=== PATIENT | male | born 1940 | race Caucasian/White ===

== ENCOUNTER 2016-07-16 08:20 | Emergency (ER) | payer MEDICARE ==
[~2016-07-16] VITALS: Ht 175.3 cm; Wt 103.2 kg
[~2016-07-16 08:20] MED LIST: ASP81CT PO; CHOL100061 PO; DXZS2T PO; OMG1KC PO
--- OUTSIDE RECORDS SUMMARY | 2016-07-16 08:25 | XMS REPORT | Continuity of Care Document ---
Author Author [facility] Address Unknown Phone Unavailable Allergies Active Description Code Type Severity Reaction Onset Reported/Identified Relationship to Patient Clinical Status Yes No Known Drug Allergies [id number] Drug Allergy Unknown N/ A 09/09/2012 Medications Problems Date Dx Coded Attending Type Code Diagnosis Diagnosed By 09/09/2012 Ot 372.30 09/09/2012 Ot 379.91 09/09/2012 Ot 473.9 09/21/2014 Ot 719.41 09/21/2014 Ot E888.9 09/21/2014 Ot 244.9 09/21/2014 Ot 250.00 09/21/2014 Ot 272.0 09/21/2014 Ot 285.9 09/21/2014 Ot 401.9 09/21/2014 Ot 599.0 09/21/2014 Ot 733.90 09/21/2014 Ot 790.99 09/21/2014 Ot V76.44 09/21/2014 SUZETTE DUENAS, CHRIS Fisher Ot 733.00 09/21/2014 SUZETTE DUENAS, CHRIS Fisher Ot 427.9 09/21/2014 SUZETTE DUENAS, CHRIS Fisher Ot 786.2 09/21/2014 Ot 719.41 09/21/2014 Ot E888.9 09/21/2014 Ot 244.9 09/21/2014 Ot 250.00 09/21/2014 Ot 272.0 09/21/2014 Ot 285.9 09/21/2014 Ot 401.9 09/21/2014 Ot 599.0 09/21/2014 Ot 733.90 09/21/2014 Ot 790.99 09/21/2014 Ot V76.44 09/21/2014 SUZETTE DUENAS, CHRIS Fisher Ot 733.00 09/21/2014 SUZETTE DUENAS, CHRIS Fishre Ot 427.9 09/21/2014 SUZETTE DUENAS, CHRIS Fisher Ot 786.2 10/18/2014 SUZETTE DUENAS, CHRIS Fisher Ot 244.9 10/18/2014 SUZETTE DUENAS, CHRIS R Ot 250.00 10/18/2014 SUZETTE DUENAS, CHRIS R Ot 272.0 10/18/2014 SUZETTE DUENAS, CHRIS R Ot 285.9 10/18/2014 SUZETTE DUENAS, CHRIS R Ot 401.9 10/18/2014 SUZETTE DUENAS, CHRIS R Ot 599.0 10/18/2014 SUZETTE DUENAS, CHRSI R Ot 733.00 10/18/2014 SUZETTE DUENAS, CHRIS R Ot 786.2 10/18/2014 SUZETTE DUENAS, CHRIS R Ot 790.6 10/18/2014 SUZETTE DUENAS, CHRIS R Ot V76.44 10/21/2014 SUZETTE DUENAS, CHRIS R Ot 244.9 10/21/2014 SUZETTE DUENAS, CHRIS R Ot 250.00 10/21/2014 SUZETTE DUENAS, CHRIS R Ot 272.0 10/21/2014 SUZETTE DUENAS, CHRIS R Ot 285.9 10/21/2014 SUZETTE DUENAS, CHRIS R Ot 401.9 10/21/2014 SUZETTE DUENAS, CHRIS R Ot 599.0 10/21/2014 SUZETTE DUENAS, CHRIS R Ot 733.00 10/21/2014 SUZETTE DUENAS, CHRIS Fisher Ot 786.2 10/21/2014 SUZETTE DUENAS, CHRIS Fisher Ot 790.6 10/21/2014 SUZETTE DUENAS, CHRIS Fisher Ot V76.44 09/16/2015 CHRIS BRADFORD MD Ot E13.65 OTHER SPECIFIED DIABETES MELLITUS WITH H 09/16/2015 CHRIS BRADFORD MD Ot N50.8 OTHER SPECIFIED DISORDERS OF MALE GENITA 09/16/2015 CHRIS BRADFORD MD Ot E13.65 OTHER SPECIFIED DIABETES MELLITUS WITH H 09/16/2015 CHRIS BRADFORD MD Ot N50.8 OTHER SPECIFIED DISORDERS OF MALE GENITA 09/16/2015 CHRIS BRADFORD MD Ot E13.65 OTHER SPECIFIED DIABETES MELLITUS WITH H 09/16/2015 CHRIS BRADFORD MD Ot N50.8 OTHER SPECIFIED DISORDERS OF MALE GENITA 09/20/2015 CHRIS BRADFORD MD Ot D50.8 OTHER IRON DEFICIENCY ANEMIAS 09/20/2015 CHRIS BRADFORD MD Ot E03.4 ATROPHY OF THYROID (ACQUIRED) 09/20/2015 CHRIS BRADFORD MD Ot E13.65 OTHER SPECIFIED DIABETES MELLITUS WITH H 09/20/2015 CHRIS BRADFORD MD Ot E78.0 PURE HYPERCHOLESTEROLEMIA 09/20/2015 CHRIS BRADFORD MD Ot I49.8 OTHER SPECIFIED CARDIAC ARRHYTHMIAS 09/20/2015 CHRIS BRADFORD MD Ot M81.0 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 09/20/2015 CHRIS BRADFORD MD, Ot N39.0 URINARY TRACT INFECTION, SITE NOT SPECIF 09/20/2015 CHRIS BRADFORD MD Ot R06.00 DYSPNEA, UNSPECIFIED 09/20/2015 CHRIS BRADFORD MD Ot R79.89 OTHER SPECIFIED ABNORMAL FINDINGS OF BLO 10/06/2015 CHRIS BRADFORD MD Ot D50.8 OTHER IRON DEFICIENCY ANEMIAS 10/06/2015 CHRIS BRADFORD MD Ot E03.4 ATROPHY OF THYROID (ACQUIRED) 10/06/2015 CHRIS BRADFORD MD Ot E13.65 OTHER SPECIFIED DIABETES MELLITUS WITH H 10/06/2015 CHRIS BRADFORD MD Ot E78.0 PURE HYPERCHOLESTEROLEMIA 10/06/2015 CHRIS BRADFORD MD Ot I49.8 OTHER SPECIFIED CARDIAC ARRHYTHMIAS 10/06/2015 CHRIS BRADFORD MD, Ot M81.0 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 10/06/2015 CHRIS BRADFORD MD Ot N39.0 URINARY TRACT INFECTION, SITE NOT SPECIF 10/06/2015 CHRIS BRADFORD MD Ot R06.00 DYSPNEA, UNSPECIFIED 10/06/2015 CHRIS BRADFROD MD Ot R79.89 OTHER SPECIFIED ABNORMAL FINDINGS OF BLO 10/06/2015 CHRIS BRADFORD MD Ot D50.8 OTHER IRON DEFICIENCY ANEMIAS 10/06/2015 CHRIS BRADFORD MD Ot E03.4 ATROPHY OF THYROID (ACQUIRED) 10/06/2015 CHRIS BRADFORD MD Ot E13.65 OTHER SPECIFIED DIABETES MELLITUS WITH H 10/06/2015 CHRIS BRADFORD MD Ot E78.0 PURE HYPERCHOLESTEROLEMIA 10/06/2015 CHRIS BRADFORD MD Ot I49.8 OTHER SPECIFIED CARDIAC ARRHYTHMIAS 10/06/2015 CHRIS BRADFORD MD, Ot M81.0 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 10/06/2015 CHRIS BRADFORD MD, Ot N39.0 URINARY TRACT INFECTION, SITE NOT SPECIF 10/06/2015 CHRIS BRADFORD MD, Ot R06.00 DYSPNEA, UNSPECIFIED 10/06/2015 CHRIS BRADFORD MD, Ot R79.89 OTHER SPECIFIED ABNORMAL FINDINGS OF BLO 10/12/2015 CHRIS BRADFORD MD Ot D50.8 OTHER IRON DEFICIENCY ANEMIAS 10/12/2015 CHRIS BRADFORD MD Ot E03.4 ATROPHY OF THYROID (ACQUIRED) 10/12/2015 CHRIS BRADFORD MD Ot E13.65 OTHER SPECIFIED DIABETES MELLITUS WITH H 10/12/2015 CHRIS BRADFORD MD, Ot E78.0 PURE HYPERCHOLESTEROLEMIA 10/12/2015 CHRIS BRADFORD MD, Ot I49.8 OTHER SPECIFIED CARDIAC ARRHYTHMIAS 10/12/2015 CHRIS BRADFORD MD, Ot M81.0 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 10/12/2015 CHRIS BRADFORD MD, Ot N39.0 URINARY TRACT INFECTION, SITE NOT SPECIF 10/12/2015 CHRIS BRADFORD MD, Ot R06.00 DYSPNEA, UNSPECIFIED 10/12/2015 CHRIS BRADFORD MD, Ot R79.89 OTHER SPECIFIED ABNORMAL FINDINGS OF BLO Procedures Results Encounters ACCT No. Visit Date/Time Discharge Status Pt. Type Provider Facility Loc./Unit Complaint [id number] 09/21/2014 07:08:00 2014 23:59:59 CLS Outpatient SUZETTE DUENAS, [facility] RAD [id number] 09/16/2013 07:25:00 2013 23:59:59 CLS Outpatient SUZETTE DUENAS, [facility] LAB [id number] 02/04/2013 10:28:00 2012 23:59:59 CLS Outpatient SUZETTE DUENAS [facility] LAB [id number] 09/16/2015 07:45:00 ACT Outpatient SUZETTE DUENAS [facility] LAB [id number] 09/09/2012 20:27:00 Document Registration [id number] 07/29/2012 07:31:00 Document Registration [id number] 02/20/2012 10:22:00 Document Registration
--- OUTSIDE RECORDS SUMMARY | 2016-07-16 08:27 | XMS REPORT | Continuity of Care Document ---
Author Author [facility] Address Unknown Phone Unavailable Allergies Active Description Code Type Severity Reaction Onset Reported/Identified Relationship to Patient Clinical Status Yes No Known Drug Allergies [id number] Drug Allergy Unknown N/ A 09/09/2012 Medications [...] CHRIS R Ot 599.0 10/18/2014 SUZETTE DUENAS, CHRIS R Ot 733.00 10/18/2014 SUZETTE DUENAS, CHRIS [...] MD Ot R06.00 DYSPNEA, UNSPECIFIED 10/06/2015 CHRIS BRADFORD MD Ot R79.89 OTHER SPECIFIED [...] Status Pt. Type Provider Facility Loc./Unit Complaint [id number] 09/21/2014 07:08:00 2014 23:59:59 CLS Outpatient SUZETTE DUENAS, [facility] RAD [id number] 09/16/2013 07:25:00 2013 23:59:59 CLS Outpatient SUZETTE DUENAS, [facility] LAB [id number] 02/04/2013 10:28:00 2012 23:59:59 CLS Outpatient SUZETTE DUENAS [facility] LAB [id number] 09/16/2015 07:45:00 ACT Outpatient SUZETTE DUENAS [facility] LAB [id number] 09/09/2012 20:27:00 Document Registration [id number] 07/29/2012 07:31:00 Document Registration [id number] 02/20/2012 10:22:00 Document Registration
[2016-07-16] MEDS ORDERED: HYDROcodone/APAP 5 MG/325 MG (NORCO) TAB PO ONE (08:35)
[2016-07-16] MEDS ORDERED: CARV25TA30 PO (08:40)
[2016-07-16] MEDS ORDERED: HYDR-3702 PO (09:12)
--- NOTE | 2016-07-16 09:13 | Diagnostic Imaging Report ---
EXAMINATION: Left shoulder, 2 views. COMPARISON: February 20, 2012. HISTORY: 75-year-old male, left shoulder pain after fall. FINDINGS: There is a comminuted displaced fracture of the left proximal humerus which includes involvement of the humeral neck and tuberosities. There is offset of the tuberosity fracture fragments measured on the lateral projection by up to at least 6 mm. There are limitations for assessment of humeral head alignment relative to the glenoid relating to the views able to be obtained. There is no obvious dislocation of the humeral head relative to the glenoid. The acromioclavicular joint is normally aligned. There are mild acromioclavicular degenerative changes without large undersurface osteophyte. No additional acute fracture is identified. IMPRESSION: 1. Comminuted displaced fracture of the left proximal humerus involving the humeral neck and tuberosities with displacement of the tuberosity fracture fragments by up to at least 6 mm. Dictated by: Dictated on workstation # [id number]
[2016-07-16 10:27] VITALS: BP 192/64
== END 2016-07-16 09:20 | disposition home or self-care (01) ==
LOC: ED 08:22
DX: S42.252A Displaced fracture of greater tuberosity of left humerus, initial encounter for closed fracture (principal); W01.10XA Fall on same level from slipping, tripping and stumbling with subsequent striking against unspecified object, initial encounter; Y93.K9 Activity, other involving animal care; Y92.009 Unspecified place in unspecified non-institutional (private) residence as the place of occurrence of the external cause
CPT/HCPCS: 73030; 99282; A9270; 99283

== ENCOUNTER → 2016-07-26 | Outpatient (CLI) | payer MEDICARE ==
[~2016-07-26] MED LIST changes: +CARV25TA30 PO; +HYDR-3702 PO
--- NOTE | 2016-07-26 14:07 | Diagnostic Imaging Report ---
INDICATION: Left humeral fracture post fall. CT of the left shoulder obtained with axial slices without contrast and sagittal and coronal reconstructions. FINDINGS: A comminuted fracture of the left humeral neck and head is seen with numerous fragments. The glenohumeral joint does not appear dislocated. The AC joint appears intact with some underlying chronic change. The scapula appears intact. IMPRESSION: Comminuted fracture of left humeral head and neck, with extension to the glenohumeral joint without dislocation of the glenohumeral joint. There is underlying degenerative change of the AC joint. The scapula and clavicle appear intact. Dictated by: Dictated on workstation # [id number]
== END ==
LOC: RAD 12:49
PROVIDERS: ATTEND Physician Assistant
DX: S42.212D Unspecified displaced fracture of surgical neck of left humerus, subsequent encounter for fracture with routine healing (principal); W19.XXXD Unspecified fall, subsequent encounter
CPT/HCPCS: 73200

== ENCOUNTER 2016-08-30 09:45 | Outpatient (RCR) | payer MEDICARE ==
--- NOTE | 2016-08-14 11:52 | PT/OT/ST INITIAL EVALUATION ---
Department of Health and Human Services Form Approved [facility] Care Financing Administration OMB No. [id number] PLAN OF CARE/ASSESSMENT FOR OUTPATIENT REHABILITATION (Complete for Initial Claims Only) 1. PATIENT'S NAME Destin Reynoso Jr 2. ACC # [id number] [facility]. [id number] 4. PROVIDER NO. [id number] 5. TYPE: PT 6. PRIOR HOSPITALIZATION None 7. PRIMARY DX Left shoulder proximal humerus fracture 8. SECONDARY DX Limited range of motion and strength 9. ONSET DATE 07/13/2016 10. REFERRAL DATE 08/08/2016 11. SOC. DATE 08/13/2016 12. TIME OF EVAL 9:00 a.m. 12. REFERRING PHYSICIAN Dr. Cayetano Urbano 13. CHARGES/UNITS Evaluation, manual therapy, Therex, and vaso 14. G CODES NA 15. PRIOR LEVEL OF FUNCTION; PERTINENT HISTORY (Prior therapy results, reason for referral.) S: Reason for referral: The patient was referred to physical therapy by Dr. Cayetano Urbano in [place] with the diagnosis of left shoulder proximal humerus fracture. Description/mechanism of injury: The patient reports that he had fallen unexpectedly on 07/13/2016 and landed on his left shoulder. He reports that there were 3 fractures at the humeral head. The patient was then placed in an immobilizer. He reports that he saw Dr. Urbano last week and thinks were healing well. He is to begin therapy with passive motion to the shoulder. The patient is right handed. He is retired. He enjoys golfing for recreational activity and working in his yard. Pain level: Current pain rating is 4/10. Past medical history: Includes arthroscopic surgery to both knees. Current medications: None Patient's Goal: The patient's use for therapy is full use of the shoulder. 16. INITIAL ASSESSMENT/SAFETY PRECAUTIONS/MEDICAL COMPLICATIONS (Level of function at start of care. Be specific, use objective measures, list problems.) O: APPEARANCE, OBSERVATION AND GAIT: The patient is a healthy looking 76-year-old male. He demonstrates slight forward head posture and mildly rounded shoulders. The humeral head is slightly anterior inferior in the glenoid fossa of the left shoulder. Bruising is noted along his biceps and triceps and distally into his left forearm. Muscle tightness and tenderness also noted at his left anterior shoulder, biceps and posterior deltoid region. RANGE OF MOTION/FLEXIBILITY: Active range of motion right shoulder flexion 138 degrees, abduction 135 degrees, left shoulder not tested. Passive range of motion right shoulder flexion 152 degrees, abduction 152 degrees, external rotation 95 degrees, and internal rotation 35 degrees. Left shoulder passive range of motion flexion 110 degrees, abduction 105 degrees, external rotation 20 degrees and internal rotation 30 degrees. STRENGTH: Right shoulder strength was 5/5 manual muscle test. Left shoulder strength not tested at this time. TODAY'S TREATMENT: Treatment included initial evaluation followed by gentle manual stretching and passive range of motion to the patient's left shoulder. The patient was then instructed on a home exercise program for gentle scapular exercises and passive range of motion. The treatment was ended with vasopneumatic cold compression to the patient's left shoulder. 17. INITIAL POC: (Specify procedures, modalities, short and optometrist owner goals) A: The patient is status post left proximal humerus fracture. PROGNOSIS: The patient is a good candidate for physical therapy to regain range of motion, flexibility, stabilization and strength at left shoulder. SHORT TERM GOALS: 1. The patient to be compliant with home exercise program in 1 week. 2. The patient to demonstrate full passive range of motion in all directions at left shoulder in 4 weeks. 3. The patient to actively elevate left shoulder to 100 degrees in 4 weeks with good mechanics. 4. The patient to demonstrate 4/5 manual muscle test strength at left shoulder in 6 weeks. 5. The patient to return to normal daily activities and golf without pain at left shoulder in 12 weeks. P: The patient will be seen 2 times a week over the next 6 weeks. Plan on progressing the patient with range of motion, flexibility, stabilization, and light strengthening activities as tolerated. 18. FREQUENCY 2 times per week 19. DURATION 6 weeks. 20. FUNCTIONAL LEVEL (End of claim period) 21. PHYSICIAN SIGNATURE ? ON FILE OR ENTER HERE: 22. DATE: I certify the need for these services furnished under this plan of care and if for partial hospitalization. 23. CERTIFICATION FROM THROUGH FORM [facility]-700
== END 2016-09-03 09:30 | disposition home or self-care (01) ==
LOC: PT 09:45
PROVIDERS: ATTEND Orthopaedic Surgery
DX: S42.212D Unspecified displaced fracture of surgical neck of left humerus, subsequent encounter for fracture with routine healing (principal); W19.XXXD Unspecified fall, subsequent encounter; M25.612 Stiffness of left shoulder, not elsewhere classified
CPT/HCPCS: 97016; 97110; 97140; 97161; G8984; G8985